=== PATIENT | female | born 1930 | race Caucasian/White ===

== ENCOUNTER 2017-12-04 17:08 | Observation (INO) | payer MEDICARE ==
[2017-12-04] MEDS ORDERED: TYLENOL 325 MG PO STA (17:25)
[2017-12-04] MEDS ORDERED: TYLENOL 325 MG ONE (17:27)
[2017-12-04] MEDS: Sodium Chloride 0.9% 1000 ML 1,000 ML IV SCH (17:31)
--- NOTE | 2017-12-04 17:38 | ERPHSYRPT ---
- History of Present Illness Time Seen by Provider: 12/04/17 17:21 Source: family Exam Limitations: other (dementia) Patient Subjective Stated Complaint: Pt family states "She has been fighting a cold for the past two days and today she had a fever. Her temp was 103." Triage Nursing Assessment: Pt alert to her norm. Family states her dementia is getting worse and worse. No apparent respiratory distress, able to ambulate with assistance. Pt warm to the touch. Physician History: According to her son, she has been coughing for about a week. She developed fever this afternoon, she was not given any Tylenol. Patient has Dementia, unable to offer any history, but not lethargic, no sign of difficulty breathing , she is not distressed or lethargic, denies any complaints. Son denies vomiting , diarrhea, rashes, other complaints, she was eating today. Timing/Duration: week(s) (1) Fever Severity: moderate Associated Symptoms: cough International travel in last 2 weeks: No Allergies/Adverse Reactions: No Known Drug Allergies Allergy (Unverified 10/20/15 14:20) Home Medications: Gabapentin [Neurontin] 400 mg PO TID 09/27/14 [History] Lisinopril 5 mg [Zestril 5 MG] 5 mg PO DAILY 09/27/14 [History] Amitriptyline HCl 25 mg [Elavil 25 mg] 50 mg PO DAILY 10/20/15 [History] Hx Tetanus, Diphtheria Vaccination/Date Given: No Hx Influenza Vaccination/Date Given: Yes Hx Pneumococcal Vaccination/Date Given: Yes Immunizations Up to Date: Yes - Review of Systems Constitutional: Fever All Other Systems: Unable due to dementia - Past Medical History Pertinent Past Medical History: Yes Neurological History: Dementia ENT History: No Pertinent History Cardiac History: Hypertension Respiratory History: No Pertinent History Endocrine Medical History: No Pertinent History Musculoskeletal History: Arthritis GI Medical History: GERD History: No Pertinent History Psycho-Social History: Anxiety Female Reproductive Disorders: No Pertinent History Other Medical History: BREAST CA - Past Surgical History Past Surgical History: Yes Neuro Surgical History: No Pertinent History Cardiac: No Pertinent History Respiratory: No Pertinent History Gastrointestinal: No Pertinent History Genitourinary: No Pertinent History Musculoskeletal: Joint Replacement, Orthopedic Surgery Female Surgical History: Section, Lumpectomy Other Surgical History: LT SHOULDER. LEFT KNEE - Social History Smoking Status: Never smoker Exposure to second hand smoke: Yes Drug Use: none Patient Lives Alone: No - Nursing Vital Signs Nursing Vital Signs: Initial Vital Signs Pulse Rate 108 H 12/04/17 17:13 Respiratory Rate 18 12/04/17 17:13 Blood Pressure 153/73 12/04/17 17:13 O2 Sat by Pulse Oximetry 97 12/04/17 17:13 Pain Scale Pain Intensity 0 - Physical Exam General Appearance: no apparent distress Eye Exam: eyes nml inspection ENT Exam: normal ENT inspection, TMs normal, pharynx normal Neck Exam: normal inspection, non-tender, supple, trachea midline, No JVD Respiratory Exam: normal breath sounds, chest non-tender, lungs clear, no respiratory distress, no accessory muscle use Cardiovascular/Chest Exam: normal heart sounds, regular rate/rhythm, normal peripheral pulses, No murmur, No edema, No JVD Gastrointestinal/Abdominal Exam: soft, no distention, no mass, no guarding, no ecchymosis, no organomegaly, no pulsatile mass, normal bowel sounds, tenderness (mild, suprapubic), No distended Extremity Exam: non-tender, no calf tenderness, no pedal edema Neurologic Exam: alert, cooperative, normal mood/affect Skin Exam: normal color, warm, dry, No rash Lymphatic: No adenopathy SpO2 Interpretation: normal SpO2: 97 Oxygen Delivery: Room Air - Course Nursing assessment & vital signs reviewed: Yes EKG Interpreted by Me: RATE (95/min), NORMAL AXIS, NORMAL INTERVALS, NORMAL ST-T - Radiology Exams Chest X-ray Interpretation: Interpreted by me, Negative Ordered Tests: Active Orders 24 hr Category Date Time Status Barrel Rifler Hook STAT Care 12/04/17 17:27 Active Cath for Specimen-Straight STAT Care 12/04/17 17:27 Active EKG-ER Only STAT Care 12/04/17 17:26 Active IV Insertion STAT Care 12/04/17 17:26 Active CHEST 2 VIEWS (PA AND LAT) Stat Exams 12/04/17 17:27 Taken BLOOD CULTURE Stat Lab 12/04/17 17:46 Received CBC W DIFF Stat Lab 12/04/17 17:46 Completed CMP Stat Lab 12/04/17 17:46 Completed CULTURE, THROAT Stat Lab 12/04/17 17:46 Received CULTURE,URINE Stat Lab 12/04/17 17:55 Received Lactic Acid Stat Lab 12/04/17 18:45 Completed STREP SCREEN-BETA A Stat Lab 12/04/17 17:46 Completed UA W/ MICROSCOPIC Stat Lab 12/04/17 17:55 Completed Medication Summary Generic Name Dose Route Start Last Admin Trade Name Shruthi PRN Reason Stop Dose Admin Sodium Chloride 1,000 mls @ 100 mls/hr 12/04/17 17:30 12/04/17 17:31 Sodium Chloride 0.9% 1000 Ml IV 01/03/18 17:29 100 mls/hr .Q10H JARED Administration Discontinued Medications Generic Name Dose Route Start Last Admin Trade Name Dimasq PRN Reason Stop Dose Admin Acetaminophen 650 mg 12/04/17 17:25 12/04/17 17:29 Tylenol 325 Mg PO 12/04/17 17:26 650 mg STAT STA Administration Acetaminophen Confirm 12/04/17 17:27 Tylenol 325 Mg Administered 12/04/17 17:28 Dose 650 mg .ROUTE .Trilibis-MED ONE Lab/Rad Data: Laboratory Result Diagrams 12/04/17 17:46 12/04/17 17:46 Laboratory Results 12/04/17 12/04/17 12/04/17 Range/Units 18:45 17:55 17:46 WBC (4.0-10.5) K/mm3 RBC (4.1-5.4) M/mm3 Hgb (12.0-16.0) gm/dl Hct (35-47) % MCV (78-100) fl MCH (26-32) pg MCHC (32-36) g/dl RDW (11.5-14.0) % Plt Count (150-450) K/mm3 MPV (6-9.5) fl Gran % (36.0-66.0) % Eos # (Auto) (0-0.5) Absolute Lymphs (auto) (1.0-4.6) Absolute Monos (auto) (0.0-1.3) Lymphocytes % (24.0-44.0) % Monocytes % (0.0-12.0) % Eosinophils % (0.00-5.0) % Basophils % (0.0-0.4) % Absolute Granulocytes (1.4-6.9) Basophils # (0-0.4) Sodium (137-145) mmol/L Potassium (3.5-5.1) mmol/L Chloride (98-107) mmol/L Carbon Dioxide (22-30) mmol/L Anion Gap (5-15) MEQ/L BUN (7-17) mg/dL Creatinine (0.52-1.04) mg/dL Estimated GFR ML/MIN Glucose (74-106) mg/dL Lactic Acid 1.2 (0.4-2.0) Calcium (8.4-10.2) mg/dL Total Bilirubin (0.2-1.3) mg/dL AST (14-36) U/L ALT (0-35) U/L Alkaline Phosphatase (38-126) U/L Serum Total Protein (6.3-8.2) g/dL Albumin (3.5-5.0) g/dL Ur Collection Type CATH Urine Color YELLOW (YELLOW) Urine Appearance CLEAR (CLEAR) Urine pH 5.0 (5-6) Ur Specific Haines 1.020 (1.005-1.025) Urine Protein TRACE (Negative) Urine Ketones SMALL (NEGATIVE) Urine Blood 250 (0-5) Erasmo/ul Urine Nitrite NEGATIVE (NEGATIVE) Urine Bilirubin NEGATIVE (NEGATIVE) Urine Urobilinogen NORMAL (0-1) mg/dL Ur Leukocyte Esterase NEGATIVE (NEGATIVE) Urine Microscopic RBC 2-5 (0-2) /HPF Urine Microscopic WBC 0-2 (0-5) /HPF Ur Epithelial Cells FEW (FEW) /HPF Urine Bacteria FEW (NEGATIVE) /HPF Urine Mucus MODERATE (NEGATIVE) /HPF Urine Culture Reflexed YES (NO) Urine Glucose 50 (NEGATIVE) mg/dL Influenza Type A Ag NEGATIVE (NEGATIVE) Influenza Type B Ag NEGATIVE (NEGATIVE) RSV (PCR) NEGATIVE (Negative) Streptococcus Screen (Negative) Specimen Received 12/04/17 3498 12/04/17 12/04/17 12/04/17 Range/Units 17:46 17:46 17:46 WBC 12.2 H (4.0-10.5) K/mm3 RBC 4.67 (4.1-5.4) M/mm3 Hgb 13.6 (12.0-16.0) gm/dl Hct 41.2 (35-47) % MCV 88.2 (78-100) fl MCH 29.1 (26-32) pg MCHC 33.0 (32-36) g/dl RDW 14.5 H (11.5-14.0) % Plt Count 308 (150-450) K/mm3 MPV 9.7 H (6-9.5) fl Gran % 86.8 H (36.0-66.0) % Eos # (Auto) 0 (0-0.5) Absolute Lymphs (auto) 0.91 L (1.0-4.6) Absolute Monos (auto) 0.67 (0.0-1.3) Lymphocytes % 7.5 L (24.0-44.0) % Monocytes % 5.5 (0.0-12.0) % Eosinophils % 0.0 (0.00-5.0) % Basophils % 0.2 (0.0-0.4) % Absolute Granulocytes 10.55 H (1.4-6.9) Basophils # 0.02 (0-0.4) Sodium 135 L (137-145) mmol/L Potassium 4.2 (3.5-5.1) mmol/L Chloride 101 (98-107) mmol/L Carbon Dioxide 21 L (22-30) mmol/L Anion Gap 17.6 H (5-15) MEQ/L BUN 23 H (7-17) mg/dL Creatinine 1.14 H (0.52-1.04) mg/dL Estimated GFR 48.1 ML/MIN Glucose 142 H (74-106) mg/dL Lactic Acid (0.4-2.0) Calcium 9.4 (8.4-10.2) mg/dL Total Bilirubin 0.50 (0.2-1.3) mg/dL AST 22 (14-36) U/L ALT 12 (0-35) U/L Alkaline Phosphatase 114 (38-126) U/L Serum Total Protein 7.6 (6.3-8.2) g/dL Albumin 4.2 (3.5-5.0) g/dL Ur Collection Type Urine Color (YELLOW) Urine Appearance (CLEAR) Urine pH (5-6) Ur Specific Haines (1.005-1.025) Urine Protein (Negative) Urine Ketones (NEGATIVE) Urine Blood (0-5) Erasmo/ul Urine Nitrite (NEGATIVE) Urine Bilirubin (NEGATIVE) Urine Urobilinogen (0-1) mg/dL Ur Leukocyte Esterase (NEGATIVE) Urine Microscopic RBC (0-2) /HPF Urine Microscopic WBC (0-5) /HPF Ur Epithelial Cells (FEW) /HPF Urine Bacteria (NEGATIVE) /HPF Urine Mucus (NEGATIVE) /HPF Urine Culture Reflexed (NO) Urine Glucose (NEGATIVE) mg/dL Influenza Type A Ag (NEGATIVE) Influenza Type B Ag (NEGATIVE) RSV (PCR) (Negative) Streptococcus Screen NEGATIVE (Negative) Specimen Received - Progress Progress: improved Progress Note: 12/04/17 19:13 Pt became afebrile, she has been stable, no sign of difficulty breathing, I called Dr Subramanian, covering Dr Chiang, discussed our results and patient's current condition, he agred to admit her to Medical bed for further treatment. I informed her family, they agreed. Discussed with : Moris Will see patient in: hospital (observation) Counseled pt/family regarding: lab results, diagnosis, rad results - Departure Time of Disposition: 19:15 Departure Disposition: Observation Clinical Impression: Fever Qualifiers: Fever type: unspecified Qualified Code(s): R50.9 - Fever, unspecified Condition: Stable Critical Care Time: No Referrals: ANGELA CHIANG [Primary Care Provider] -
[2017-12-04 17:58] LABS: BASOPHIL % 0.2 % (0.0-0.4); Basophil (Absolute #) 0.02 (0-0.4); Eosinophil (Absolute #) 0 (0-0.5); Granulocyte Absolute (ANC) 10.55 (1.4-6.9); Granulocytes % 86.8 % (36.0-66.0); Hematocrit 41.2 % (35-47); Hemoglobin 13.6 gm/dl (12.0-16.0); Lymphocyte (Absolute #) 0.91 (1.0-4.6); Lymphocytes % 7.5 % (24.0-44.0); Mean Cell Volume 88.2 fl (78-100); Mean Corpuscular Hemoglobin 29.1 pg (26-32); Mean Platelet Volume 9.7 fl (6-9.5); Monocyte (Absolute #) 0.67 (0.0-1.3); Monocytes % 5.5 % (0.0-12.0); Platelet Count 308 K/mm3 (150-450); Red Blood Count 4.67 M/mm3 (4.1-5.4); Red Cell Distribution Width 14.5 % (11.5-14.0); White Blood Count 12.2 K/mm3 (4.0-10.5)
[2017-12-04 18:32] LABS: ALBUMIN 4.2 g/dL (3.5-5.0); ANION GAP 17.6 MEQ/L (5-15); BILIRUBIN,TOTAL 0.5 mg/dL (0.2-1.3); Calcium 9.4 mg/dL (8.4-10.2); Creatinine 1 1.14 mg/dL (0.52-1.04); Potassium 4.2 mmol/L (3.5-5.1); Total Protein 7.6 g/dL (6.3-8.2)
[2017-12-04 18:36] LABS: INFLUENZA A NEGATIVE (NEGATIVE); INFLUENZA B NEGATIVE (NEGATIVE); RESPIRATORY SYNCTIAL VIRUS NEGATIVE (Negative)
[2017-12-04 18:48] LABS: Appearance CLEAR (CLEAR); Bilirubin NEGATIVE (NEGATIVE); Blood 250 Ery/ul (0-5); Glucose 50 mg/dL (NEGATIVE); Ketones SMALL (NEGATIVE); Leukocyte Esterase NEGATIVE (NEGATIVE); Nitrite NEGATIVE (NEGATIVE); Protein,Urine Dip TRACE (Negative); Urobilinogen NORMAL mg/dL (0-1)
[2017-12-04 18:49] LABS: Bacteria FEW /HPF (NEGATIVE); Epithelial Cells FEW /HPF (FEW); Mucus MODERATE /HPF (NEGATIVE); WBC 0-2 /HPF (0-5)
[2017-12-04] MEDS ORDERED: ROCEPHIN 1 Gm-D5w 50 ml Bag** 1 G/50 ML IVPB IV STA (19:10)
[2017-12-04] MEDS ORDERED: Zithromax 500 MG/ 250 ML NaCl Premix 500 MG/250 ML IVPB IV STA (19:10)
[2017-12-04] MEDS ORDERED: ROCEPHIN 1 Gm-D5w 50 ml Bag** 1 G/50 ML IVPB IV ONE (19:16)
[2017-12-04] MEDS ORDERED: DUONEB 0.5-3 MG/3 ml Neb IH PRN (19:16)
[2017-12-04] MEDS ORDERED: TYLENOL 325 MG PO PRN (19:16)
[2017-12-04] MEDS ORDERED: Sodium Chloride 0.9% 1000 ML 1,000 ML IV SCH (19:30)
[2017-12-04] MEDS: Ambien 5 MG Tablet PO SCH (22:11)
[2017-12-05] MEDS: Sodium Chloride 0.9% 1000 ML 1,000 ML IV SCH ×2 (04:42→14:36)
[2017-12-05 05:41] LABS: BASOPHIL % 0.2 % (0.0-0.4); Basophil (Absolute #) 0.02 (0-0.4); Eosinophil % 0.3 % (0.00-5.0); Eosinophil (Absolute #) 0.03 (0-0.5); Granulocyte Absolute (ANC) 7.83 (1.4-6.9); Granulocytes % 80.7 % (36.0-66.0); Hematocrit 36.2 % (35-47); Hemoglobin 11.9 gm/dl (12.0-16.0); Lymphocyte (Absolute #) 1.19 (1.0-4.6); Lymphocytes % 12.3 % (24.0-44.0); Mean Cell Volume 89.6 fl (78-100); Mean Corpuscular Hgb Concent. 32.9 g/dl (32-36); Mean Platelet Volume 9.4 fl (6-9.5); Monocyte (Absolute #) 0.63 (0.0-1.3); Monocytes % 6.5 % (0.0-12.0); Platelet Count 265 K/mm3 (150-450); Red Blood Count 4.04 M/mm3 (4.1-5.4); Red Cell Distribution Width 14.6 % (11.5-14.0); White Blood Count 9.7 K/mm3 (4.0-10.5)
[2017-12-05 05:51] LABS: Mean Corpuscular Hemoglobin 29.4 pg (26-32)
[2017-12-05 06:00] LABS: ANION GAP 13.3 MEQ/L (5-15); Calcium 8.6 mg/dL (8.4-10.2); Creatinine 1 1.19 mg/dL (0.52-1.04); Potassium 3.8 mmol/L (3.5-5.1)
--- NOTE | 2017-12-05 08:36 | XRAY ---
Indication: Fever and cough. Comparison: October 20, 2015. PA/lateral chest hyperinflated and clear. Heart is not enlarged. Vascularity normal. Stable small hiatal hernia. Bony thorax intact again with osteopenia, degenerative changes, scoliosis, and remote L1 compression deformity. Impression: Nonacute hyperinflated chest with chronic features.
--- NOTE | 2017-12-05 08:58 | PCM.HP ---
History of Present Illness - Chief Complaint Chief Complaint: Fever History of Present Illness: is a 87 year old female with dementia who was admitted through ER last night with fever to 103 and cough. She was started on rocehpin and zithromax; presumtive tx for pna even though CXR is read as negative. UA with 0 -2 WBC, 2-5 RBC. UCx, throat culture, and Bld Cx pending. This morning she is somewhat argumentative, would like to go home because her is sick (he does have prostate ca). Says she is feeling fine. - Review of Systems Constitutional: Fever Respiratory: Cough All Other Systems: Unable due to dementia Medications & Allergies Home Medications: Home Medication List Gabapentin [Neurontin] 400 mg PO TID 09/27/14 [History Confirmed 12/04/17] Lisinopril 5 mg [Zestril 5 MG] 5 mg PO DAILY 09/27/14 [History Confirmed 12/04/17] Amitriptyline HCl 25 mg [Elavil 25 mg] 50 mg PO DAILY 10/20/15 [History Confirmed 12/04/17] Allergies/Adverse Reactions: Allergies Allergy/AdvReac Type Severity Reaction Status Date / Time No Known Drug Allergies Allergy Unverified 10/20/15 14:20 - Past Medical History Past Medical History: Yes Neurological History: Dementia ENT History: No Pertinent History Cardiac History: Hypertension Respiratory History: No Pertinent History Endocrine Medical History: No Pertinent History Musculoskelatal History: Arthritis GI Medical History: GERD History: No Pertinent History Pyscho-Social History: Anxiety Reproductive Disorders: No Pertinent History Comment: BREAST CA - Past Surgical History Past Surgical History: Yes Neuro Surgical History: No Pertinent History Cardiac History: No Pertinent History Respiratory Surgery: No Pertinent History GI Surgical History: No Pertinent History Genitourinary Surgical Hx: No Pertinent History Musculskeletal Surgical Hx: Joint Replacement, Orthopedic Surgery Female Surgical History: Section, Lumpectomy Other Surgical History: LT SHOULDER. LEFT KNEE - Social History Smoking Status: Never smoker Exposure to second hand smoke: Yes Alcohol: Rarely Drug Use: none - Physical Exam Vital Signs: Vital Signs - 24 hr Temp Pulse Resp BP Pulse Ox 12/05/17 07:13 98.8 F 73 20 147/65 94 L 04/26/18 06:34 98 12/05/17 04:00 98.9 F 68 18 137/65 95 12/05/17 00:00 98.1 F 77 18 152/73 94 L 12/04/17 23:31 97 12/04/17 21:35 96 12/04/17 20:00 98.2 F 83 18 192/81 96 12/04/17 19:15 97 12/04/17 18:56 98.7 F 93 H 20 98 12/04/17 18:03 96 H 20 153/73 94 L 12/04/17 17:13 108 H 18 153/73 97 Oxygen-Last 24 hours O2 Percentage 4 Liters = 36% General Appearance: no apparent distress, anxiety Neurologic Exam: alert, disoriented Eye Exam: eyes nml inspection Ears, Nose, Throat Exam: moist mucous membranes Neck Exam: normal inspection Respiratory Exam: normal breath sounds, rhonchi (RLL), No crackles/rales, No wheezing Cardiovascular Exam: regular rate/rhythm, normal heart sounds, No murmur Gastrointestinal/Abdomen Exam: No distention Back Exam: normal inspection, No rash Extremity Exam: normal inspection, No pedal edema, No swelling Skin Exam: normal color, warm, dry, No rash Results - Labs Lab/Micro Results: Lab Results-Last 24 Hours 12/05/17 12/05/17 Range/Units 05:35 05:35 WBC 9.7 (4.0-10.5) K/mm3 RBC 4.04 L (4.1-5.4) M/mm3 Hgb 11.9 L (12.0-16.0) gm/dl Hct 36.2 (35-47) % MCV 89.6 (78-100) fl MCH 29.4 (26-32) pg MCHC 32.9 (32-36) g/dl RDW 14.6 H (11.5-14.0) % Plt Count 265 (150-450) K/mm3 MPV 9.4 (6-9.5) fl Gran % 80.7 H (36.0-66.0) % Eos # (Auto) 0.03 (0-0.5) Absolute Lymphs (auto) 1.19 (1.0-4.6) Absolute Monos (auto) 0.63 (0.0-1.3) Lymphocytes % 12.3 L (24.0-44.0) % Monocytes % 6.5 (0.0-12.0) % Eosinophils % 0.3 (0.00-5.0) % Basophils % 0.2 (0.0-0.4) % Absolute Granulocytes 7.83 H (1.4-6.9) Basophils # 0.02 (0-0.4) Sodium 138 (137-145) mmol/L Potassium 3.8 (3.5-5.1) mmol/L Chloride 106 (98-107) mmol/L Carbon Dioxide 23 (22-30) mmol/L Anion Gap 13.3 (5-15) MEQ/L BUN 23 H (7-17) mg/dL Creatinine 1.19 H (0.52-1.04) mg/dL Estimated GFR 45.8 ML/MIN Glucose 99 (74-106) mg/dL Calcium 8.6 (8.4-10.2) mg/dL Assessment/Plan (1) Pneumonia Current Visit: Yes Status: Acute Qualifiers: Pneumonia type: due to unspecified organism Laterality: right Lung location: lower lobe of lung Qualified Code(s): J18.1 - Lobar pneumonia, unspecified organism Assessment & Plan: Clinically, rhonchi on right. With sx of cough and fever to 103, presume pneumonia despite clear CXR. On rocephin and zithromax day #2. She will need at least another day or two on the IV antibiotics before discharge to home. Code(s): J18.9 - PNEUMONIA, UNSPECIFIED ORGANISM (2) Fever Current Visit: Yes Status: Acute Onset Date: ~12/05/17 Qualifiers: Fever type: unspecified Qualified Code(s): R50.9 - Fever, unspecified Code(s): R50.9 - FEVER, UNSPECIFIED (3) Dementia Current Visit: Yes Status: Chronic Qualifiers: Dementia type: Alzheimer's disease Alzheimer's disease onset: unspecified onset Dementia behavioral disturbance: with behavioral disturbance Qualified Code(s): G30.9 - Alzheimer's disease, unspecified; F02.81 - Dementia in other diseases classified elsewhere with behavioral disturbance; F02.81 - Dementia in other diseases classified elsewhere with behavioral disturbance; F02.81 - Dementia in other diseases classified elsewhere with behavioral disturbance Code(s): F03.90 - UNSPECIFIED DEMENTIA WITHOUT BEHAVIORAL DISTURBANCE
[2017-12-05] MEDS: Neurontin 400 MG PO SCH ×3 (10:35→21:40)
[2017-12-05] MEDS: Zestril 5 MG PO SCH (10:35)
[2017-12-05] MEDS ORDERED: Ativan 0.5 MG PO PRN (11:03)
[2017-12-05] MEDS: PATIENT OWN MEDICATION PO SCH ×2 (11:25→21:40)
[2017-12-05] MEDS: ENOXAPARIN SODIUM SQ SCH (11:25)
[2017-12-05] MEDS ORDERED: ROCEPHIN 1 Gm-D5w 50 ml Bag** 1 G/50 ML IVPB IV SCH (20:00)
[2017-12-05] MEDS ORDERED: Zithromax 500 MG/ 250 ML NaCl Premix 500 MG/250 ML IVPB IV SCH (21:00)
[2017-12-05] MEDS: Ambien 5 MG Tablet PO SCH (21:40)
[2017-12-06] MEDS: Sodium Chloride 0.9% 1000 ML 1,000 ML IV SCH (02:38)
[2017-12-06 04:05] VITALS: O2SAT 94
[2017-12-06 08:10] VITALS: BP 144/72; PULSE 79
[2017-12-06] MEDS: Neurontin 400 MG PO SCH (08:56)
[2017-12-06] MEDS: Zestril 5 MG PO SCH (08:56)
[2017-12-06] MEDS: ENOXAPARIN SODIUM SQ SCH (08:56)
[2017-12-06] MEDS: PATIENT OWN MEDICATION PO SCH (08:56)
--- NOTE | 2017-12-06 09:01 | PCM.DS ---
Discharge Summary Date of Admission: 12/04/17 19:59 Admitting Physician: ANGELA GARCIA Primary Care Provider: ANGELA GARCIA Allergies Allergies No Known Drug Allergies Allergy (Unverified 10/20/15 14:20) Hospital Summary - Hospital Course Hospital Course: She is feeling good, asking again to go home. Has been trying to "call her family" but RN is unsure who she's calling. She is up fixing her hair in front of the sink. - Vitals & Intake/Output Vital Signs: Vital Signs Temperature 97.4 F 12/06/17 08:00 Pulse Rate 79 12/06/17 08:00 Respiratory Rate 24 12/06/17 08:00 Blood Pressure 144/72 12/06/17 08:00 O2 Sat by Pulse Oximetry 94 L 12/06/17 08:00 Oxygen-Last Documented O2 Percentage 4 Liters = 36% Intake & Output: Intake & Output 12/03/17 12/04/17 12/05/17 12/06/17 11:59 11:59 11:59 11:59 Intake Total 1349 4412 Output Total 1100 1600 Balance 249 2812 Weight 58.5 kg - Lab Result Diagrams: 12/05/17 05:35 12/05/17 05:35 Discharge Exam General Appearance: no apparent distress, alert Neurologic Exam: cooperative, disoriented Skin Exam: normal color, warm, dry, No rash Respiratory Exam: normal breath sounds, lungs clear, No crackles/rales, No rhonchi, No wheezing Cardiovascular Exam: regular rate/rhythm, normal heart sounds, No murmur Extremity Exam: normal inspection, No pedal edema, No swelling Back Exam: normal inspection, No rash Final Diagnosis/Problem List - Final Discharge Diagnosis/Problem (1) Pneumonia Current Visit: Yes Status: Acute Assessment & Plan: Doing great, on zithromax and rocephin day #3. Home on augmentin. (2) Fever Current Visit: Yes Status: Resolved Onset Date: ~12/05/17 (3) Dementia Current Visit: Yes Status: Chronic - Discharge Disposition: Home, Self-Care Condition: Stable Prescriptions: New Amoxicillin/Potassium Clav [Augmentin 875-125 Tablet] 875 mg PO BID #14 tablet Continue Lisinopril 5 mg [Zestril 5 MG] 5 mg PO DAILY Gabapentin [Neurontin] 400 mg PO TID Amitriptyline HCl 25 mg [Elavil 25 mg] 50 mg PO DAILY Rivastigmine Tartrate [Rivastigmine] 3 mg PO BID Instructions: Fever of Unknown Origin Follow up with: ANGELA GARCIA [Primary Care Provider] - 12/13/17 10:15 am Forms: Discharge Instructions, Patient Portal Information
== END 2017-12-06 09:55 | disposition home or self-care (01) ==
LOC: ED 17:08 → MED SURG 19:59
PROVIDERS: ADMIT Family Medicine; ATTEND Family Medicine
DX: J18.1 Lobar pneumonia, unspecified organism (principal); G30.9 Alzheimer's disease, unspecified; F02.81 Dementia in other diseases classified elsewhere, unspecified severity, with behavioral disturbance; I10 Essential (primary) hypertension; M19.90 Unspecified osteoarthritis, unspecified site; K21.9 Gastro-esophageal reflux disease without esophagitis; F41.9 Anxiety disorder, unspecified; Z85.3 Personal history of malignant neoplasm of breast; Z79.899 Other long term (current) drug therapy
CPT/HCPCS: 36000; 36415; 71046; 80048; 80053; 81000; 83605; 85025; 87040; 87070; 87086; 87430; 87631; 93005; 93041; 93268; 94760; 96360; 96361; 96365; 96367; 99285; G0378; P9612; J0456; J0696; J1650; A9270-GY

== ENCOUNTER 2018-12-05 17:12 | Emergency (ER) | payer MEDICARE ==
[2018-12-05] MEDS ORDERED: Sodium Chloride 0.9% 1000 ML 1,000 ML IV SCH (17:15)
[2018-12-05 18:02] LABS: BASOPHIL % 0.7 % (0.0-0.4); Basophil (Absolute #) 0.03 (0-0.4); Eosinophil % 1.6 % (0.00-5.0); Eosinophil (Absolute #) 0.07 (0-0.5); Granulocytes % 65.5 % (36.0-66.0); Hematocrit 38.5 % (35-47); Hemoglobin 12.2 gm/dl (12.0-16.0); Lymphocyte (Absolute #) 0.95 (1.0-4.6); Lymphocytes % 21.4 % (24.0-44.0); Mean Cell Volume 92.3 fl (78-100); Mean Corpuscular Hemoglobin 29.3 pg (26-32); Mean Corpuscular Hgb Concent. 31.7 g/dl (32-36); Mean Platelet Volume 8.9 fl (6-9.5); Monocyte (Absolute #) 0.48 (0.0-1.3); Monocytes % 10.8 % (0.0-12.0); Platelet Count 317 K/mm3 (150-450); Red Blood Count 4.17 M/mm3 (4.1-5.4); Red Cell Distribution Width 16.7 % (11.5-14.0); White Blood Count 4.4 K/mm3 (4.0-10.5)
[2018-12-05 18:23] LABS: ALBUMIN 3.9 g/dL (3.5-5.0); ANION GAP 14.7 MEQ/L (5-15); BILIRUBIN,TOTAL 0.6 mg/dL (0.2-1.3); Calcium 9.2 mg/dL (8.4-10.2); Creatinine 1 1.05 mg/dL (0.52-1.04); MAGNESIUM 2.5 mg/dL (1.6-2.3); Potassium 4.5 mmol/L (3.5-5.1); Total Protein 7.5 g/dL (6.3-8.2)
[2018-12-05] MEDS ORDERED: Sodium Chloride 0.9% 1000 ML 1,000 ML ONE (18:28)
[2018-12-05 20:02] LABS: Appearance CLEAR (CLEAR); Bilirubin NEGATIVE (NEGATIVE); Blood MODERATE Ery/ul (0-5); Glucose NEGATIVE (NEGATIVE); Ketones TRACE (NEGATIVE); Leukocyte Esterase NEGATIVE (NEGATIVE); Nitrite NEGATIVE (NEGATIVE); Protein,Urine Dip NEGATIVE (Negative); Urobilinogen NEGATIVE mg/dL (0-1); WBC 0-2 /HPF (0-5)
--- NOTE | 2018-12-05 21:21 | ERPHSYRPT ---
- History of Present Illness Source: family Exam Limitations: clinical condition Patient Subjective Stated Complaint: fami;y staets she has been falling and unable to stand or walk for the past 24 hours.. has recently been treated for a UTI.. finished ATB on saturday. denies pain.. family concerned of decline. known dementia.. unaware of place and time Triage Nursing Assessment: alert and confused. voices no c/o. family derek has had a decline of ability to walk today. has been being treated for UTI and finished last week. weakness that has been progressive. Physician History: Pt is an 88 y/o female that has a h/o dementia and is cared for at home 04/03. Pt had more falls recently and was confused, and she was brought to the ER for work up. Pt can't give any ROS, or history, secondary to severe dementia. Timing/Duration: day(s) Severity: moderate Allergies/Adverse Reactions: No Known Drug Allergies Allergy (Unverified 10/20/15 14:20) Hx Tetanus, Diphtheria Vaccination/Date Given: No Hx Influenza Vaccination/Date Given: Yes Hx Pneumococcal Vaccination/Date Given: Yes - Review of Systems Constitutional: Other (Pt can't give any ROS, secondary to severe dementia.) - Past Medical History Pertinent Past Medical History: Yes Neurological History: Dementia ENT History: No Pertinent History Cardiac History: Hypertension Respiratory History: No Pertinent History Endocrine Medical History: No Pertinent History Musculoskeletal History: Arthritis GI Medical History: GERD History: No Pertinent History Psycho-Social History: Anxiety Female Reproductive Disorders: No Pertinent History Other Medical History: BREAST CA - Past Surgical History Past Surgical History: Yes Neuro Surgical History: No Pertinent History Cardiac: No Pertinent History Respiratory: No Pertinent History Gastrointestinal: No Pertinent History Genitourinary: No Pertinent History Musculoskeletal: Joint Replacement, Orthopedic Surgery Female Surgical History: Section, Lumpectomy Other Surgical History: LT SHOULDER. LEFT KNEE - Social History Smoking Status: Never smoker Exposure to second hand smoke: No Drug Use: none Patient Lives Alone: No - Female History Hx Now: No - Nursing Vital Signs Nursing Vital Signs: Initial Vital Signs Temperature 97.4 F 12/05/18 17:45 Pulse Rate 74 12/05/18 17:45 Respiratory Rate 18 12/05/18 17:45 Blood Pressure 157/99 12/05/18 17:45 O2 Sat by Pulse Oximetry 97 12/05/18 17:45 Pain Scale Pain Intensity 0 - Physical Exam General Appearance: no apparent distress, alert Eye Exam: PERRL/EOMI, eyes nml inspection Ears, Nose, Throat Exam: normal ENT inspection, TMs normal, pharynx normal, moist mucous membranes Neck Exam: normal inspection, non-tender, supple, full range of motion Respiratory Exam: normal breath sounds, lungs clear, No respiratory distress Cardiovascular Exam: regular rate/rhythm, normal heart sounds, normal peripheral pulses Gastrointestinal/Abdomen Exam: soft, normal bowel sounds, No tenderness, No mass Neurologic Exam: alert, normal mood/affect, nml cerebellar function, sensation nml, other (tremors of extremities. Dementia) SpO2: 92 - Course Nursing assessment & vital signs reviewed: Yes EKG Interpreted by Me: RATE (76bpm, PVC), Sinus Rhythm, NORMAL QRS Ordered Tests: Active Orders 24 hr Category Date Time Status CBC W DIFF Stat Lab 12/05/18 18:00 Completed CMP Stat Lab 12/05/18 18:00 Completed MAGNESIUM Stat Lab 12/05/18 18:00 Completed TSH [TSH, 3RD Generation] Stat Lab 12/05/18 18:00 Completed UA W/RFX UR CULTURE Stat Lab 12/05/18 17:17 Completed Medication Summary Generic Name Dose Route Start Last Admin Trade Name Freq PRN Reason Stop Dose Admin Sodium Chloride 1,000 mls @ 100 mls/hr 12/05/18 17:15 12/05/18 19:00 Sodium Chloride 0.9% 1000 Ml IV 01/04/19 17:14 100 mls/hr .Q10H JARED Administration Lab/Rad Data: Laboratory Result Diagrams 12/05/18 18:00 12/05/18 18:00 Laboratory Results 12/05/18 12/05/18 12/05/18 Range/Units 18:00 18:00 18:00 WBC 4.4 (4.0-10.5) K/mm3 RBC 4.17 (4.1-5.4) M/mm3 Hgb 12.2 (12.0-16.0) gm/dl Hct 38.5 (35-47) % MCV 92.3 (78-100) fl MCH 29.3 (26-32) pg MCHC 31.7 L (32-36) g/dl RDW 16.7 H (11.5-14.0) % Plt Count 317 (150-450) K/mm3 MPV 8.9 (6-9.5) fl Gran % 65.5 (36.0-66.0) % Eos # (Auto) 0.07 (0-0.5) Absolute Lymphs (auto) 0.95 L (1.0-4.6) Absolute Monos (auto) 0.48 (0.0-1.3) Lymphocytes % 21.4 L (24.0-44.0) % Monocytes % 10.8 (0.0-12.0) % Eosinophils % 1.6 (0.00-5.0) % Basophils % 0.7 (0.0-0.4) % Absolute Granulocytes 2.90 (1.4-6.9) Basophils # 0.03 (0-0.4) Sodium 140 (137-145) mmol/L Potassium 4.5 (3.5-5.1) mmol/L Chloride 104 (98-107) mmol/L Carbon Dioxide 26 (22-30) mmol/L Anion Gap 14.7 (5-15) MEQ/L BUN 17 (7-17) mg/dL Creatinine 1.05 H (0.52-1.04) mg/dL Estimated GFR 52.8 ML/MIN Glucose 83 (74-106) mg/dL Calcium 9.2 (8.4-10.2) mg/dL Magnesium 2.5 H (1.6-2.3) mg/dL Total Bilirubin 0.60 (0.2-1.3) mg/dL AST 39 H (14-36) U/L ALT 17 (0-35) U/L Alkaline Phosphatase 120 (38-126) U/L Serum Total Protein 7.5 (6.3-8.2) g/dL Albumin 3.9 (3.5-5.0) g/dL TSH 3rd Generation 3.350 (0.47-4.68) mIU/L Urine Color (YELLOW) Urine Appearance (CLEAR) Urine pH (5-6) Ur Specific Porter (1.005-1.025) Urine Protein (Negative) Urine Ketones (NEGATIVE) Urine Blood (0-5) Erasmo/ul Urine Nitrite (NEGATIVE) Urine Bilirubin (NEGATIVE) Urine Urobilinogen (0-1) mg/dL Ur Leukocyte Esterase (NEGATIVE) Urine WBC (Auto) (0-5) /HPF Urine RBC (Auto) (0-2) /HPF U Epithel Cells (Auto) (FEW) /HPF Urine Bacteria (Auto) (NEGATIVE) /HPF Urine Culture Reflexed (NO) Urine Glucose (NEGATIVE) mg/dL 12/05/18 Range/Units 17:17 WBC (4.0-10.5) K/mm3 RBC (4.1-5.4) M/mm3 Hgb (12.0-16.0) gm/dl Hct (35-47) % MCV (78-100) fl MCH (26-32) pg MCHC (32-36) g/dl RDW (11.5-14.0) % Plt Count (150-450) K/mm3 MPV (6-9.5) fl Gran % (36.0-66.0) % Eos # (Auto) (0-0.5) Absolute Lymphs (auto) (1.0-4.6) Absolute Monos (auto) (0.0-1.3) Lymphocytes % (24.0-44.0) % Monocytes % (0.0-12.0) % Eosinophils % (0.00-5.0) % Basophils % (0.0-0.4) % Absolute Granulocytes (1.4-6.9) Basophils # (0-0.4) Sodium (137-145) mmol/L Potassium (3.5-5.1) mmol/L Chloride (98-107) mmol/L Carbon Dioxide (22-30) mmol/L Anion Gap (5-15) MEQ/L BUN (7-17) mg/dL Creatinine (0.52-1.04) mg/dL Estimated GFR ML/MIN Glucose (74-106) mg/dL Calcium (8.4-10.2) mg/dL Magnesium (1.6-2.3) mg/dL Total Bilirubin (0.2-1.3) mg/dL AST (14-36) U/L ALT (0-35) U/L Alkaline Phosphatase (38-126) U/L Serum Total Protein (6.3-8.2) g/dL Albumin (3.5-5.0) g/dL TSH 3rd Generation (0.47-4.68) mIU/L Urine Color YELLOW (YELLOW) Urine Appearance CLEAR (CLEAR) Urine pH 7.0 (5-6) Ur Specific Porter 1.010 (1.005-1.025) Urine Protein NEGATIVE (Negative) Urine Ketones TRACE (NEGATIVE) Urine Blood MODERATE (0-5) Erasmo/ul Urine Nitrite NEGATIVE (NEGATIVE) Urine Bilirubin NEGATIVE (NEGATIVE) Urine Urobilinogen NEGATIVE (0-1) mg/dL Ur Leukocyte Esterase NEGATIVE (NEGATIVE) Urine WBC (Auto) 0-2 (0-5) /HPF Urine RBC (Auto) 16-25 (0-2) /HPF U Epithel Cells (Auto) NONE (FEW) /HPF Urine Bacteria (Auto) NONE (NEGATIVE) /HPF Urine Culture Reflexed NO (NO) Urine Glucose NEGATIVE (NEGATIVE) mg/dL - Progress Progress: unchanged Progress Note: 12/05/18 21:20 Pt had labs done and UA. All were normal, and pt did not have any UTI. Pt has extensive therapy with Trazodone, Clonazepam, Tramadol, and Zoloft. All will cause depression of mentation, and falls. Pt should f/u with her PCP and have her meds slowly tapered down. Discussed with : Андрей Will see patient in: office Counseled pt/family regarding: need for follow-up - Departure Departure Disposition: Home Clinical Impression: Drug interaction Condition: Stable Critical Care Time: No Referrals: ANGELA GARCIA [Primary Care Provider] - Additional Instructions: F/U with PCP, to adjust meds that can cause alteration in mental status, and instability.
[2018-12-05 22:20] VITALS: BP 168/78; PULSE 74; O2SAT 97
== END 2018-12-05 23:04 | disposition home or self-care (01) ==
LOC: ED 17:12
DX: G25.79 Other drug induced movement disorders (principal); F03.90 Unspecified dementia, unspecified severity, without behavioral disturbance, psychotic disturbance, mood disturbance, and anxiety; R41.0 Disorientation, unspecified; R29.6 Repeated falls; I10 Essential (primary) hypertension; K21.9 Gastro-esophageal reflux disease without esophagitis; Z85.3 Personal history of malignant neoplasm of breast
CPT/HCPCS: 36000; 36415; 80053; 81001; 83735; 84443; 85025; 96360; 96361; 99284